=== PATIENT | female | born 1975 | race African-American/Black ===

== ENCOUNTER → 2017-04-10 | Outpatient (CLI) | payer BC ==
[2017-04-10 09:51] LABS: Basophils # (auto) 0 uL; Basophils % (auto) 0.7 % (0.0-2.0); Eosinophils # (auto) 0.1 uL; Eosinophils % (auto) 1.3 % (0.0-7.0); Hematocrit 33.2 % (36.0-46.0); Lymphocytes # (auto) 2.3 uL; Lymphocytes % (auto) 44.4 % (10.0-50.0); Mean Corpuscular Hemoglobin 29.1 pg (28.0-32.0); Mean Corpuscular Volume 87.9 fL (80.0-100.0); Mean Platelet Volume 8.8 fL (6.9-10.8); Monocytes # (auto) 0.4 uL; Monocytes % (auto) 7.4 % (0.0-12.0); Neutrophils # (auto) 2.4 uL; Neutrophils % (auto) 46.2 % (37.0-80.0); Nucleated Red Blood Cells % 0.1 %; Platelet Count (auto) 237 10^3/uL (140-450); Red Cell Distribution Width 15.9 % (11.8-14.3); White Blood Cell 5.3 10^3/uL (4.4-10.8)
[2017-04-10 12:28] LABS: Cholesterol 111 mg/dL (< 200); HDL Cholesterol 52 mg/dL (40-59); LDL Cholesterol 60 mg/dL (< 100); Triglycerides 57 mg/dL (< 150)
== END | disposition home or self-care (01) ==
LOC: LAB 08:55
PROVIDERS: ATTEND Specialist
DX: N92.0 Excessive and frequent menstruation with regular cycle (principal)
CPT/HCPCS: 36415; 80061; 83525; 84146; 84403; 84443; 85025

== ENCOUNTER → 2017-07-07 | Outpatient (CLI) | payer BC ==
[2017-07-07 08:29] LABS: Basophils # (auto) 0 uL; Basophils % (auto) 0.8 % (0.0-2.0); Eosinophils # (auto) 0 uL; Eosinophils % (auto) 0.9 % (0.0-7.0); Hematocrit 33.5 % (36.0-46.0); Hemoglobin 10.8 g/dL (12.2-16.2); Lymphocytes # (auto) 2.5 uL; Lymphocytes % (auto) 49.1 % (10.0-50.0); Mean Corpuscular Hemoglobin 27.6 pg (28.0-32.0); Mean Corpuscular Hgb Conc. 32.3 g/dL (32.0-36.0); Mean Corpuscular Volume 85.4 fL (80.0-100.0); Monocytes # (auto) 0.4 uL; Monocytes % (auto) 7.7 % (0.0-12.0); Neutrophils # (auto) 2.1 uL; Neutrophils % (auto) 41.5 % (37.0-80.0); Nucleated Red Blood Cells % 0.1 %; Platelet Count (auto) 316 10^3/uL (140-450); Red Blood Cells 3.92 10^6/uL (4.0-5.20); Red Cell Distribution Width 17.3 % (11.8-14.3); White Blood Cell 5.1 10^3/uL (4.4-10.8)
[2017-07-07 09:53] LABS: Albumin 3.8 g/dL (3.4-5.0); BUN/Creatinine Ratio 16.4; Bilirubin, Total 0.1 mg/dL (0.2-1.0); Calcium 8.8 mg/dL (8.5-10.1); Potassium 3.6 mmol/L (3.5-5.1); Total Protein 7.4 g/dL (6.4-8.2)
== END | disposition home or self-care (01) ==
LOC: LAB 07:58
PROVIDERS: ATTEND Physician Assistant
DX: O14.93 Unspecified pre-eclampsia, third trimester (principal); O09.513 Supervision of elderly primigravida, third trimester; O34.13 Maternal care for benign tumor of corpus uteri, third trimester; D25.9 Leiomyoma of uterus, unspecified; I63.9 Cerebral infarction, unspecified; M25.562 Pain in left knee; Z3A.00 Weeks of gestation of pregnancy not specified
CPT/HCPCS: 36415; 80053; 80061; 85025

== ENCOUNTER → 2017-08-16 | Outpatient (CLI) | payer BC | END | disposition home or self-care (01) | LOC: Rad HDHVI 08:06 | PROVIDERS: ATTEND Internal Medicine Cardiovascular Disease | DX: I63.9 Cerebral infarction, unspecified (principal) | CPT/HCPCS: 93880 ==

== ENCOUNTER → 2017-08-21 | Outpatient (CLI) | payer BC ==
[2017-08-21 09:32] LABS: Basophils # (auto) 0 uL; Eosinophils # (auto) 0.1 uL; Hemoglobin 10.2 g/dL (12.2-16.2); Monocytes # (auto) 0.3 uL; Neutrophils # (auto) 1.9 uL; Red Cell Distribution Width 17.5 % (11.8-14.3)
[2017-08-21 09:37] LABS: Basophils % (auto) 0.9 % (0.0-2.0); Eosinophils % (auto) 1.4 % (0.0-7.0); Hematocrit 31.9 % (36.0-46.0); Lymphocytes % (auto) 46.5 % (10.0-50.0); Mean Corpuscular Hemoglobin 26.5 pg (28.0-32.0); Mean Corpuscular Hgb Conc. 32.1 g/dL (32.0-36.0); Mean Corpuscular Volume 82.6 fL (80.0-100.0); Monocytes % (auto) 7.4 % (0.0-12.0); Neutrophils % (auto) 43.8 % (37.0-80.0); Nucleated Red Blood Cells % 0.1 %; Platelet Count (auto) 292 10^3/uL (140-450); Red Blood Cells 3.86 10^6/uL (4.0-5.20); White Blood Cell 4.3 10^3/uL (4.4-10.8)
[2017-08-21 09:42] LABS: INR 0.94 (0.9-1.15); Partial Thromboplastin Time 24.5 sec (22.64-33.71); Prothrombin Time 10.2 sec (9.37-12.3)
[2017-08-21 10:00] LABS: Alanine Aminotransferase 21 U/L (13-56); Albumin 3.7 g/dL (3.4-5.0); Alkaline Phosphatase 70 U/L (45-117); Anion Gap 9 (5-15); Aspartate Aminotransferase 13 U/L (15-37); BUN/Creatinine Ratio 15.6; Bilirubin, Total 0.2 mg/dL (0.2-1.0); Blood Urea Nitrogen 10 mg/dL (7-18); CRP High Sensitivity < 0.02 mg/dL (< 0.3); Calcium 8.8 mg/dL (8.5-10.1); Carbon Dioxide 25 mmol/L (21-32); Chloride 105 mmol/L (98-107); GFR African American 132 mL/min; GFR Non-African American 109 mL/min; Glucose 100 mg/dL (74-106); Potassium 4.1 mmol/L (3.5-5.1); Sodium 139 mmol/L (136-145); Total Protein 7.6 g/dL (6.4-8.2)
[2017-08-21 10:45] LABS: Free T4 (Free Thyroxine) 1.19 ng/dL (0.89-1.76)
[2017-08-21 10:47] LABS: Folate (Folic Acid) 12.02 ng/mL (5.38-24)
== END | disposition home or self-care (01) ==
LOC: LAB 08:05
DX: I63.8 Other cerebral infarction (principal); R55 Syncope and collapse
CPT/HCPCS: 36415; 80053; 82607; 82746; 84439; 84443; 85025; 85610; 85652; 85730; 86141; 86225; 86235

== ENCOUNTER → 2017-08-29 | Outpatient (CLI) | payer BC ==
[~2017-08-29] VITALS: Ht 152.4 cm; Wt 69.4 kg
== END | disposition home or self-care (01) ==
LOC: Rad HDHVI 07:57
PROVIDERS: ATTEND Internal Medicine Cardiovascular Disease
DX: Z01.810 Encounter for preprocedural cardiovascular examination (principal); I63.9 Cerebral infarction, unspecified
CPT/HCPCS: 78452; 93017; 96374; A9500

== ENCOUNTER 2017-10-02 17:18 | Emergency (ER) | payer BC, OTHER ==
[~2017-10-02] VITALS: Ht 152.4 cm; Wt 70.3 kg
[2017-10-02 17:36] VITALS: BP 132/75
[2017-10-02] MEDS ORDERED: IBUPROFEN 800 MG TAB PO ONE (18:45)
== END 2017-10-02 20:12 | disposition home or self-care (01) ==
LOC: ER 17:18
DX: S33.5XXA Sprain of ligaments of lumbar spine, initial encounter (principal); I10 Essential (primary) hypertension; X58.XXXA Exposure to other specified factors, initial encounter; Y93.89 Activity, other specified; Y99.8 Other external cause status; Y92.89 Other specified places as the place of occurrence of the external cause
CPT/HCPCS: 72100